=== PATIENT | male | born 1970 | race Two or more races ===

== ENCOUNTER → 2024-04-12 | Outpatient (BNVA) | payer OTHER, SELFPAY | END | disposition home or self-care (01) | PROVIDERS: PCP Obstetrics & Gynecology; Referring Provider Obstetrics & Gynecology; Visit Provider Urology | DX: N40.0 Benign prostatic hyperplasia without lower urinary tract symptoms (principal); N43.40 Spermatocele of epididymis, unspecified; E66.9 Obesity, unspecified; Z68.27 Body mass index [BMI] 27.0-27.9, adult; E78.00 Pure hypercholesterolemia, unspecified | CPT/HCPCS: 81003; 99212; G0463 ==

== ENCOUNTER → 2024-04-12 | Outpatient (CLI) | payer OTHER, SELFPAY ==
[2024-04-12 08:52] LABS: Prostate Specific Antigen 1.48 ng/mL (0-4.00)
== END | disposition home or self-care (01) ==
PROVIDERS: PCP Nurse Practitioner Family; Referring Provider Urology; Visit Provider Urology
DX: N40.1 Benign prostatic hyperplasia with lower urinary tract symptoms (principal)
CPT/HCPCS: 36415; 84153

== ENCOUNTER → 2024-05-14 | Outpatient (BNVA) | payer OTHER, SELFPAY | END | disposition home or self-care (01) | PROVIDERS: PCP Obstetrics & Gynecology; Referring Provider Obstetrics & Gynecology; Visit Provider Urology | DX: N43.40 Spermatocele of epididymis, unspecified (principal); N40.0 Benign prostatic hyperplasia without lower urinary tract symptoms; E78.00 Pure hypercholesterolemia, unspecified | CPT/HCPCS: 55899; J3490 ==

== ENCOUNTER → 2024-06-01 | Outpatient (CLI) | payer OTHER, SELFPAY ==
--- NOTE | 2024-06-01 16:00 | XR_ITS ---
Examination: Testicular sonography complete TECHNIQUE: Grayscale sonographic images testes, assessment arterial inflow venous outflow, Doppler spectral analysis carful analysis Exam date and time: June 01, 2024 1536 hours Comparison June 27, 2015 INDICATIONS: History postop drainage right spermatocele 2 weeks ago, bilateral pain history bilateral spermatoceles FINDINGS: Right testis 4.6 x 3.0 x 3.1 cm Epididymis 4.7 cm Multiple spermatoceles on the right, the largest 4.7 x 2.2 x 2.1 cm Arterial flow testicle. No testicular mass Left testis 4.4 x 2.9 x 2.7 cm Epididymis 3.1 cm Multiple spermatoceles on the left, the largest 4.3 x 3.2 x 3.0 cm Arterial flow testicle. No testicular mass IMPRESSION: No testicular torsion or testicular mass Bilateral multiple spermatoceles
== END | disposition home or self-care (01) ==
PROVIDERS: PCP Obstetrics & Gynecology; Referring Provider Urology; Visit Provider Urology
DX: N43.40 Spermatocele of epididymis, unspecified (principal)
CPT/HCPCS: 76870

== ENCOUNTER → 2024-08-16 | Outpatient (BNVA) | payer OTHER, SELFPAY | END | disposition home or self-care (01) | PROVIDERS: PCP Obstetrics & Gynecology; Referring Provider Obstetrics & Gynecology; Visit Provider Urology | DX: N40.0 Benign prostatic hyperplasia without lower urinary tract symptoms (principal); N43.42 Spermatocele of epididymis, multiple; E66.9 Obesity, unspecified; Z68.27 Body mass index [BMI] 27.0-27.9, adult; E78.00 Pure hypercholesterolemia, unspecified | CPT/HCPCS: 81003; 99212; G0463 ==